=== PATIENT | female | born 1995 | race Caucasian/White ===

== ENCOUNTER 2020-01-09 20:18 | Emergency (ER) | payer MEDICAID, OTHER ==
[~2020-01-09] VITALS: Ht 157.5 cm; Wt 47.7 kg
[2020-01-09] MEDS ORDERED: FLUCONAZOLE 200 MG TABLET PO ONE (23:45)
[2020-01-09] MEDS ORDERED: CefTRIAXone SODIUM 1 GM/VIAL IM ONE (23:45)
[2020-01-09] MEDS ORDERED: AZITHROMYCIN 250 MG TABLET PO ONE (23:45)
[2020-01-09] MEDS ORDERED: LIDOCAINE/PF 1% 2 ML VIAL ONE (23:53)
[2020-01-10] MEDS ORDERED: FLUCONAZOLE 150 MG TABLET PO ONE
[2020-01-10] MEDS ORDERED: LIDOCAINE/PF 1% 2 ML VIAL IM ONE
[2020-01-10 00:20] VITALS: BP 120/72
== END 2020-01-10 00:33 | disposition home or self-care (01) ==
LOC: EMS 20:19
DX: N89.8 Other specified noninflammatory disorders of vagina (principal)
CPT/HCPCS: 81002; 81025; 96372; 99283; J0696; J3490